=== PATIENT | male | born 1995 | race Caucasian/White ===

== ENCOUNTER 2021-07-14 22:10 | Emergency (ER) | payer BC, OTHER ==
[~2021-07-14] VITALS: Ht 170.2 cm; Wt 80.8 kg
[2021-07-14 22:12] VITALS: BP 143/98
== END 2021-07-15 01:59 | disposition home or self-care (01) ==
LOC: M ED 22:10
DX: H93.12 Tinnitus, left ear (principal); H83.3X2 Noise effects on left inner ear; Z77.122 Contact with and (suspected) exposure to noise

== ENCOUNTER 2022-08-06 16:52 | Emergency (ER) | payer OTHER, BC ==
[~2022-08-06] VITALS: Ht 170.2 cm; Wt 79.3 kg
[2022-08-06 20:21] VITALS: BP 135/79; TEMP 98; O2SAT 98
== END 2022-08-06 20:23 | disposition home or self-care (01) ==
LOC: M ED 16:52
DX: S30.0XXA Contusion of lower back and pelvis, initial encounter (principal); V03.10XA Pedestrian on foot injured in collision with car, pick-up truck or van in traffic accident, initial encounter; Y92.89 Other specified places as the place of occurrence of the external cause; Y93.89 Activity, other specified; Y99.0 Civilian activity done for income or pay; M54.50 Low back pain, unspecified